=== PATIENT | male | born 1965 | race Caucasian/White ===

== ENCOUNTER 2018-01-05 05:06 | Day surgery (SDC) | payer OTHER ==
[~2018-01-05] VITALS: Ht 170.2 cm; Wt 92.5 kg
[2018-01-05] MEDS ORDERED: NORVASC10 MG PO (07:09)
[2018-01-05] MEDS ORDERED: BAYER CHEWABLE81 MG PO (07:10)
[2018-01-05] MEDS ORDERED: TEGRETOL 100 M100 MG PO (07:11)
[2018-01-05] MEDS ORDERED: CYMBALTA20 MG PO (07:11)
[2018-01-05] MEDS ORDERED: VASOTEC20 MG PO (07:12)
[2018-01-05] MEDS ORDERED: METOPROLOL TAR100 M1 PO (07:13)
[2018-01-05] MEDS ORDERED: ZOCOR40 MG PO (07:13)
[2018-01-05 07:19] VITALS: BP 122/81; Ht 170.2 cm; Wt 92.5 kg
[2018-01-05 08:28] LABS: HEMATOCRIT 42.2 % (42.0-54.0); HEMOGLOBIN 14.3 g/dL (13.5-17.5); MCH 30.6 pg (26.0-34.0); MCHC 33.9 g/dL (31.0-37.0); MCV 90.2 fL (80.0-100.0); MEAN PLATELET VOLUME 12.2 fL (7.4-10.4); RBC 4.68 10x6/uL (4.20-6.10); RDW 12.5 % (11.5-14.5)
== END 2018-01-05 14:25 | disposition home or self-care (01) ==
LOC: D.OPS 05:06
PROVIDERS: Anesthesiology
DX: K40.30 Unilateral inguinal hernia, with obstruction, without gangrene, not specified as recurrent (principal); K40.90 Unilateral inguinal hernia, without obstruction or gangrene, not specified as recurrent; Z01.812 Encounter for preprocedural laboratory examination

== ENCOUNTER 2018-10-12 05:49 | Day surgery (SDC) | payer OTHER ==
[~2018-10-12] VITALS: Ht 170.2 cm; Wt 98.4 kg
[~2018-10-12 05:49] MED LIST: BAYER CHEWABLE81 MG PO; CYMBALTA20 MG PO; METOPROLOL TAR100 M1 PO; NORVASC10 MG PO; TEGRETOL 100 M100 MG PO; VASOTEC20 MG PO; ZOCOR40 MG PO
[2018-10-12 06:22] VITALS: Ht 170.2 cm; Wt 98.4 kg
[2018-10-12 07:07] LABS: HEMATOCRIT 42.5 % (42.0-54.0); HEMOGLOBIN 14.7 g/dL (13.5-17.5); MCH 30.6 pg (26.0-34.0); MCHC 34.6 g/dL (31.0-37.0); MCV 88.5 fL (80.0-100.0); MEAN PLATELET VOLUME 12.4 fL (7.4-10.4); RBC 4.8 10x6/uL (4.20-6.10); RDW 12.7 % (11.5-14.5); WBC 5.5 10x3/uL (4.8-10.8)
--- NOTE | 2018-10-12 11:50 | NUR ---
TOLERATED FL TRAY. AROUSES TO VERBAL STIMULI. ADC OFFICER AT BEDSIDE.
--- NOTE | 2018-10-12 13:52 | NUR ---
PT IVDISCHARGE INSTRUCTIONS REVIEWED AT THIS TIME, PT VERBALIZES UNDERSTANDING. PTIV REMOVED AT THIS TIME, INTACT, NO REDNESS OR SWELLING AT SITE.
--- NOTE | 2018-10-12 14:00 | NUR ---
PT LEFT UNIT AT THIS TIME VIA WC, NO REACTION TO NORCO NOTED AT THIS TIME.
--- NOTE | 2018-10-14 18:02 | OP ---
PATIENT NAME: MARIE CRUZ MEDICAL RECORD: [id number] :61 LOCATION:D.OPS ADMISSION DATE: SURGEON: EMANUEL CAMPOS MD DATE OF OPERATION: 10/12/2018 PREOPERATIVE DIAGNOSES: 1. Recurrent right inguinal hernia. 2. Symptomatic ventral hernia. POSTOPERATIVE DIAGNOSES: 1. Recurrent direct right inguinal hernia, nonincarcerated. 2. Incarcerated ventral hernia. 3. Cord lipoma. 4. Hydrocele. PROCEDURES: 1. Plug repair of open recurrent right direct inguinal hernia. 2. Open repair of incarcerated ventral hernia without mesh. 3. Excision of cord lipoma. 4. Hydrocelectomy. SURGEON: Emanuel Campos MD BUSINESS OFFICE ASSISTANT: None. BLOOD LOSS: Minimal. ANESTHESIA: General. COMPLICATIONS: None. The risks, possible complications and alternatives to the procedure were explained to the patient. He elects to proceed. The discussion specifically included, but was not limited to, bleeding requiring emergency reoperation, infection, reherniation and chronic pain. We also discussed the possible need for evacuation of a pseudosac hematoma, which I believed the patient had, but he did not have; also the possible need for orchiectomy. The patient stated that he had testicular pain, but when he pointed the area where he was having pain, it was more along the upper scrotum and not down in the testicle. The right testicle felt larger than it was in the left. I did not appreciate any hydrocele preoperatively. OPERATIVE COURSE: The patient was conveyed to the operating room electively on 10/12/2018. General anesthesia was induced by the anesthesia staff. The abdomen and genitals were sterilely prepped and draped. I interrogated the right hemiscrotum with the ultrasound. This revealed a moderately sized cystic structure without internal echoes involving the area just cephalad to the testicle. An incision was accomplished between the anterior superior iliac spine down toward the pubic symphysis. Sharp dissection was carried down through skin and subcutaneous tissue as well as Scott's fascia. I then mobilized the cord structures. I was able to deliver the testicle. A cord lipoma was identified. This was excised with electrocautery. I identified a hydrocele. I was able to OPERATIVE REPORT [id number] MARIE CRUZ puncture the hydrocele and clear fluid came out. I then unroofed the hydrocele with the electrocautery. I then marsupialized the back side of the hydrocele with a running locking 3-0 Vicryl suture. I then cauterized this back portion of the hydrocele cavity with electrocautery. I then cauterized portions of the testicle, so they would scar to the scrotum to help prevent torsion. I noted a small medial defect in the internal ring. I performed some blunt dissection up along this portion of the ring and I was able to free up the cord circumferentially. I created a preperitoneal space and placed a plug. I then closed the external oblique aponeurosis medial to the cord with interrupted 0 Surgidac sutures. I then ensured that the testicle had been pulled down into the hemiscrotum and had not developed a torsion. I examined the cord structures with the Doppler and this was done with a color Doppler, which revealed a Doppler flow in the cord as well as with a handheld Doppler, which revealed good arterial signal as well as venous signal. Scott's fascia was approximated with interrupted 3-0 Vicryls. The subdermis was approximated with interrupted 3-0 Vicryls. The skin was approximated with a running intracuticular 4-0 Vicryl. Attention was then turned to the ventral hernia repair at the umbilicus. An incision was accomplished within the umbilicus. Sharp dissection was carried down to some incarcerated fat which was excised in a piecemeal fashion with electrocautery. I then sharply cleaned connective tissue from around the hernia defect. I closed the hernia defect with a horizontal mattress 0 Surgidac suture. I then overran this fascial closure with another horizontal mattress, but at this time with 0 Vicryl suture. The skin was approximated with multiple interrupted 4-0 Vicryl Rapide sutures. Sterile dressings were applied. The patient was then extubated and conveyed to post-anesthesia care unit where he was in stable condition. There is no need for him to follow up with me in the office unless he develops complication related to this operative procedure. If he does develop a complication, then I can either see him in the office or I can see him out of the snf when I make rounds out of snf twice monthly. TRANSINT:[id number] Voice Confirmation ID: [id number] DOCUMENT ID: [id number] EMANUEL CAMPOS MD at 1802 CC: AMBROSE LINDSEY ROBERT MD, VIN GOODMAN MD, DANA,[id number] JUAN C VÁSQUEZ DICTATION DATE: 10/13/18 1114 CLINICAL MEDICAL TRANSCRIPTIONIST: 10/13/18 1306 [facility] 10/12/18 [place] [id number] [place] [id number]
== END 2018-10-12 14:05 | disposition home or self-care (01) ==
LOC: D.OPS 05:49
PROVIDERS: Anesthesiology
DX: K40.91 Unilateral inguinal hernia, without obstruction or gangrene, recurrent (principal); K43.6 Other and unspecified ventral hernia with obstruction, without gangrene; D17.6 Benign lipomatous neoplasm of spermatic cord; N43.3 Hydrocele, unspecified; Z01.812 Encounter for preprocedural laboratory examination

== ENCOUNTER 2018-10-13 13:02 | Emergency (ER) | payer OTHER ==
[~2018-10-13] VITALS: Ht 170.2 cm; Wt 98.6 kg
[2018-10-13 13:05] VITALS: Ht 170.2 cm; Wt 98.6 kg
[2018-10-13 16:05] VITALS: BP 129/88
== END 2018-10-13 16:07 | disposition home or self-care (01) ==
LOC: D.ER 13:02
DX: R33.8 Other retention of urine (principal); I10 Essential (primary) hypertension